=== PATIENT | female | born 1955 | race African-American/Black ===

== ENCOUNTER 2024-11-18 13:22 | Emergency (ER) | payer OTHER, SELFPAY ==
[2024-11-18 16:04] LABS: #Basophils 0.03 10x3/uL (0.0-0.2); #Eosinophils 0.03 10x3/uL (0.0-0.5); #Monocytes 1.35 10x3/uL (0.0-1.1); #Neutrophils 5.42 10x3/uL (1.5-8.4); %Basophils 0.4 % (0.0-2.0); %Eosinophils 0.4 % (0.0-6.0); %Lymphocytes 17.7 % (18.0-47.0); %Monocytes 16.2 % (0.0-10.0); %Neutrophils 65.1 % (40.0-75.0); Hematocrit 40.5 % (34.9-44.5); Hemoglobin 13.3 g/dL (12.0-15.5); Mean Corpuscular Hemoglobin 29.0 pg (27.0-33.0); Mean Corpuscular Volume 88.4 fL (81.6-98.3); Red Blood Cell (RBC) Count 4.58 10x6/uL (3.90-5.03); White Blood Cell (WBC) Count 8.32 10x3/uL (3.5-10.5)
[2024-11-18 16:18] LABS: Platelet Count 132 10x3/uL (150-450)
[2024-11-18 16:19] LABS: ALT (SGPT) 11 U/L (Less than 34); AST (SGOT) 27 U/L (11-34); Albumin 3.8 g/dL (3.1-4.5); Alkaline Phosphatase 100 U/L (40-110); Anion Gap 13 mmol/L (10-20); BUN (Urea Nitrogen) 10 mg/dL (9.8-20.1); Bilirubin, Total 0.6 mg/dL (0.3-1.2); Calc. Creatinine Clearance 0 mL/min (70-130); Calcium 9.2 mg/dL (7.8-10.44); Carbon Dioxide 28 mmol/L (23-31); Chloride 104 mmol/L (98-107); Globulin 4.4 g/dL (2.4-3.5); Glucose 103 mg/dL (80-115); Magnesium 1.8 mg/dL (1.6-2.6); Potassium 3.7 mmol/L (3.5-5.1); Sodium 141 mmol/L (136-145)
[2024-11-18] MEDS ORDERED: Acetaminophen 500 MG TAB ONE (17:15)
== END 2024-11-18 17:24 | disposition home or self-care (01) ==
LOC: CSHERS 13:22
DX: G89.29 Other chronic pain (principal); M54.50 Low back pain, unspecified; M79.641 Pain in right hand; R63.4 Abnormal weight loss; I10 Essential (primary) hypertension; F17.210 Nicotine dependence, cigarettes, uncomplicated; Z55.6 Problems related to health literacy
CPT/HCPCS: 36415; 72131; 80053; 83735; 85025; 87428